=== PATIENT | female | born 1955 | race American Indian/Alaskan Native ===

== ENCOUNTER 2017-12-18 14:18 | Outpatient (CLI) | payer OTHER ==
[2017-12-18 15:05] LABS: Blood Urea Nitrogen 9 mg/dL (7-17)
--- NOTE | 2017-12-19 08:00 | Magnetic Resonance Report ---
MRI BRAIN WITH/WITHOUT CONTRAST: History: Benign neoplasm of pituitary gland Technique: Multiple T1 and T2 weighted images were obtained in multiple planes. Axial diffusion and gradient imaging was performed. Post contrast T1 images in two planes were obtained following IV gadolinium. Thin collimation imaging was performed through the sella turc[place]. Findings: The brain parenchyma signal intensity and its alford-white interface are normal on all sequences. Minimal nonspecific chronic T2 signal abnormalities are identified in the white matter which are appropriate for the patient's age. No diffusion restriction, hemorrhage, mass effect or extra-axial fluid collection. Ventricular size is normal and symmetric. The basal cisterns are clear. The brainstem and cerebellar hemispheres are within normal limits. The fourth ventricle is midline. The paranasal sinuses and mastoid air cells are well aerated. Normal flow voids are identified in the appropriate vessels at the [place]. Thin collimation images through the sella demonstrate a normal-sized pituitary gland measuring 12 mm transverse, 9 mm AP, and 4 mm craniocaudal. There is suggestion of a 3 mm focus of diminished enhancement in the right side of the pituitary gland which is best demonstrated on coronal postcontrast image 14, series 14. This could represent a small microadenoma. Impression: Possible 3 mm pituitary microadenoma on the right side as outlined above. Please correlate with the patient's clinical presentation and laboratory values.
== END 2017-12-18 14:19 | disposition home or self-care (01) ==
LOC: MRI 14:18
PROVIDERS: ATTEND Internal Medicine
DX: D35.2 Benign neoplasm of pituitary gland (principal)
CPT/HCPCS: 36415; 70553; 82565; 84520; A9577